=== PATIENT | male | born 2000 | race Hispanic/Latino ===

== ENCOUNTER 2024-04-02 10:44 | Emergency (ER) | payer SELFPAY ==
[2024-04-02] VITALS (12 sets, daily range): BP systolic 115–138; BP diastolic 67–86
[2024-04-02] MEDS ORDERED: LIDOcaine HCl 1% (Local Anesth.) 20 ML VIAL STI STA (11:35)
[2024-04-02] MEDS ORDERED: POVIDONE IODINE 0.5 OZ/BTL TOP ONE (11:35)
[2024-04-02] MEDS ORDERED: BACTRIM DS1 TAB PO (12:43)
[2024-04-02] MEDS ORDERED: MUPIROCIN2 % EX (12:47)
[2024-04-02] MEDS ORDERED: MUPIROCIN (PSEUDOMONAS FLUORES 22 GM/TUBE TUBE TOP ONE (12:50)
== END 2024-04-02 13:36 | disposition home or self-care (01) | DRG 607 ==
LOC: ED 10:44
PROC: 0HBRXZZ Excision of Toe Nail, External Approach (ICD-10-PCS; principal; 2024-04-02)
DX: L60.0 Ingrowing nail (principal)